=== PATIENT | male | born 1990 | race African-American/Black ===

== ENCOUNTER 2021-12-30 12:15 | Emergency (ER) | payer MEDICARE, OTHER ==
[~2021-12-30 12:15] MED LIST: BUPROPION HCL150 M1 PO; GEODON80 MG PO; NAPROXEN500 MG PO; NORCO 5-325 TA1 EACH PO; PROTONIX 40MG T40 MG PO; ZOCOR20 MG PO; ZOFRAN4 MG PO
[2021-12-30 14:18] LABS: BASOPHIL 0.3 % (0-2); EOSINOPHIL 0.3 % (0-5); HCT 49.4 % (42.0-52.0); HGB 15.7 g/dl (13.2-18.0); LYMPHOCYTE 21.1 % (15-48); MCHC 31.8 g/dL (32.0-36.0); MCV 88.2 fL (78.0-100.0); MONOCYTE 6.8 % (0-12); MPV 10.3 fL (6.0-9.5); NEUTROPHIL 71.1 % (41-80); NRBC 0; PLT 353 K/uL (150-400); RDW 12.7 % (11.5-14.0); WBC 7.5 K/uL (4.0-10.5)
[2021-12-30 14:48] LABS: BUN 10 mg/dL (7-18); BUN/CREAT RATIO (CALC) 8.4 RATIO; CHLORIDE 103 mmol/L (98-107); CO2 (BICARBONATE) 28 mmol/L (21-32); CREATININE 1.19 mg/dL (0.67-1.17); GLUCOSE 121 mg/dL (74-106); POTASSIUM 3.9 mmol/L (3.5-5.1)
[2021-12-30 14:54] LABS: ACETAMINOPHEN (TYLENOL) < 2.0 ug/mL (10.0-30.0)
[2021-12-30 15:05] LABS: BILIRUBIN NEGATIVE (NEGATIVE); BLOOD NEGATIVE Ery/uL (NEGATIVE); CLARITY CLEAR (CLEAR); COLOR YELLOW (YELLOW); GLUCOSE (U) NORMAL (NORMAL); LEUKOCYTES NEGATIVE Leu/uL (NEGATIVE); NITRITE NEGATIVE (NEGATIVE); PROTEIN TRACE (LOW) mg/dL (NEGATIVE); SPECIFIC GRAVITY >=1.030 (1.001-1.030)
[2021-12-30 15:13] LABS: AMPHETAMINES NEGATIVE (NEGATIVE); BARBITURATES NEGATIVE (NEGATIVE); ECSTASY (MDMA) NEGATIVE (NEGATIVE); MARIJUANA (THC) NEGATIVE (NEGATIVE); METHADONE NEGATIVE (NEGATIVE); OPIATES NEGATIVE (NEGATIVE); OXYCODONE NEGATIVE (NEGATIVE)
[2021-12-30 15:33] LABS: MUCOUS TRACE; URINARY RBC RARE; URINARY WBC RARE
== END 2021-12-30 16:24 | disposition left against medical advice (07) ==
LOC: FER 12:15
PROVIDERS: Nurse Practitioner Family
DX: R45.6 Violent behavior (principal); F20.9 Schizophrenia, unspecified; Z53.29 Procedure and treatment not carried out because of patient's decision for other reasons
CPT/HCPCS: 36415; 80048; 80305; 81001; 85025; 99283; G0480

== ENCOUNTER 2022-03-14 12:28 | Emergency (ER) | payer MEDICARE, OTHER ==
[2022-03-14] MEDS ORDERED: ZIPRASIDONE HCL80 MG PO (14:08)
== END 2022-03-14 14:51 | disposition home or self-care (01) ==
LOC: FER 12:28
DX: F20.9 Schizophrenia, unspecified (principal); Z28.310 Unvaccinated for COVID-19
CPT/HCPCS: 99282